=== PATIENT | female | born 1985 | race Asian ===

== ENCOUNTER 2018-06-11 07:15 | Inpatient (IN) | payer BC ==
[~2018-06-11] VITALS: Ht 157.5 cm; Wt 84.8 kg
[2018-06-11] MEDS ORDERED: LR 1,000 ML IV ONE (08:08)
[2018-06-11] MEDS ORDERED: OXYTOCIN/0.9 % SODIUM CHLORIDE 1,000 ML IV SCH (08:08)
[2018-06-11] MEDS ORDERED: LR 1,000 ML IV SCH ×3 (08:08→13:43)
[2018-06-11] MEDS ORDERED: NALBUPHINE HCL 10 MG/ML AMP IVP PRN (08:15)
[2018-06-11] MEDS ORDERED: AMPICILLIN SODIUM 2 GM in NS 100 ML IV ONE (08:15)
[2018-06-11] MEDS ORDERED: TERBUTALINE SULFATE 1 MG/ML VIAL SUBCUT ONE (08:15)
[2018-06-11 09:44] LABS: HEMATOCRIT 32.8 % (36-48); HEMOGLOBIN 11.3 g/dL (12.0-16.0); MEAN CORPUSCULAR VOLUME 89 fL (79.0-98.0); RED BLOOD CELL COUNT(AUTO) 3.69 MIL/uL (4.2-6.2); WHITE BLOOD COUNT (AUTO) 9.4 K/uL (4.8-10.8)
[2018-06-11 09:45] LABS: MEAN CORPUSCULAR HEMOGLOBIN 31 pg (27-31); MEAN CORPUSCULAR HGB CONC 35 % (32-36); PLATELET COUNT (AUTO) 221 K/uL (130-430)
[2018-06-11 10:10] LABS: BAND % (MANUAL) 1 % (0-6); BASOPHILS % (MANUAL) 0 % (0-2); EOSINOPHILS % (MANUAL) 3 % (0-7); LYMPHOCYTES % (MANUAL) 21 % (20-46); MONOCYTES % (MANUAL) 1 % (0-11)
[2018-06-11] MEDS ORDERED: ROPIVACAINE 0.2% 0 ML ONE (10:31)
[2018-06-11] MEDS ORDERED: fentaNYL CITRATE/PF 100 MCG/2 ML AMP ONE (10:31)
[2018-06-11] MEDS ORDERED: LR 500 ML IV ONE (10:40)
[2018-06-11] MEDS ORDERED: FENT2mCg/mL-ROPIVA0.2%/NS EPID 150 ML EP SCH (10:45)
[2018-06-11] MEDS ORDERED: LR 1,000 ML IV.SOLN IV ONE (11:55)
[2018-06-11] MEDS ORDERED: WATER FOR IRRIGATION,STERILE 1,000 ML IRRIG.SOLN IR ONE (11:55)
[2018-06-11] MEDS ORDERED: ePHEDrine sulfate 50 MG/ML VIAL IVP ONE (11:55)
[2018-06-11] MEDS ORDERED: ONDANSETRON HCL 4 MG/2 ML VIAL IVP ONE (11:55)
[2018-06-11] MEDS ORDERED: MORPHINE SULFATE 10MG/10ML PF AMP EP ONE (11:55)
[2018-06-11] MEDS ORDERED: LIDOCAINE 2%, 20 ML MDV INJ ONE (11:55)
[2018-06-11] MEDS ORDERED: CEFAZOLIN 2 GM IVPB PREMIX 50 ML IV ONE ×2 (11:55→12:00)
[2018-06-11] MEDS ORDERED: AMPICILLIN SODIUM 1 GM in NS 50 ML IV SCH (12:15)
[2018-06-11] MEDS ORDERED: KETOROLAC TROMETHAMINE 60 MG/2 ML VIAL IM PRN (13:00)
[2018-06-11] MEDS ORDERED: DIPHENHYDRAMINE INJ 50 MG/ML VIAL IM PRN (13:00)
[2018-06-11] MEDS ORDERED: NALOXONE HCL 0.4 MG/ML AMP (NARCAN) IVP PRN (13:00)
[2018-06-11] MEDS ORDERED: ONDANSETRON HCL 4 MG/2 ML VIAL IVP PRN (13:00)
[2018-06-11] MEDS ORDERED: METOCLOPRAMIDE HCL 10 MG/2 ML VIAL IVP PRN (13:00)
[2018-06-11] MEDS ORDERED: MEPERIDINE HCL/PF 25 MG/ML DISP.SYRIN IVP PRN (13:00)
[2018-06-11] MEDS ORDERED: MORPHINE SULFATE 10MG/10ML PF AMP SP SCH (13:00)
[2018-06-11] MEDS ORDERED: MEPERIDINE HCL/PF 50 MG/ML AMP IVP PRN ×2 (13:00)
[2018-06-11] MEDS ORDERED: OXYTOCIN/0.9 % SODIUM CHLORIDE 1,000 ML IV ONE ×2 (13:41→13:43)
[2018-06-11 13:45] VITALS: BP_SYST 133
[2018-06-11] MEDS ORDERED: SENNOSIDES/DOCUSATE SODIUM 1 TAB TABLET(SENOKOT-S) PO PRN (13:45)
[2018-06-11] MEDS ORDERED: LANOLIN 7 GM OINT. TP PRN (13:45)
[2018-06-11] MEDS ORDERED: BISACODYL 10 MG/SUPPOSITORY RC PRN (13:45)
[2018-06-11] MEDS ORDERED: ANUSOL 1 EA SUPP.RECT (PREPARATION H) RC PRN (13:45)
[2018-06-11] MEDS: CEFAZOLIN 1 GM IVPB PREMIX 50 ML IV SCH (17:56)
[2018-06-12] MEDS: CEFAZOLIN 1 GM IVPB PREMIX 50 ML IV SCH (01:17)
[2018-06-12 07:55] LABS: BASOPHILS % (AUTO) 0.2 % (0.0-2.0); EOSINOPHILS % (AUTO) 0.4 % (0.0-4.0); HEMATOCRIT 28.2 % (36-48); HEMOGLOBIN 9.5 g/dL (12.0-16.0); LYMPHOCYTES # (AUTO) 1.4 K/uL (1.0-5.5); LYMPHOCYTES % (AUTO) 13.6 % (20.5-51.5); MEAN CORPUSCULAR HEMOGLOBIN 30 pg (27-31); MEAN CORPUSCULAR HGB CONC 34 % (32-36); MEAN CORPUSCULAR VOLUME 89 fL (79.0-98.0); MONOCYTES # (AUTO) 0.7 K/uL (0.0-1.0); MONOCYTES % (AUTO) 6.7 % (1.7-9.3); NEUTROPHILS # (AUTO) 8.5 K/uL (1.8-7.7); NEUTROPHILS % (AUTO) 79.1 % (40.0-70.0); PLATELET COUNT (AUTO) 171 K/uL (130-430); RED BLOOD CELL COUNT(AUTO) 3.18 MIL/uL (4.2-6.2); WHITE BLOOD COUNT (AUTO) 10.6 K/uL (4.8-10.8)
[2018-06-12] MEDS: SIMETHICONE 80 MG TAB.CHEW PO PRN ×3 (12:21→22:19)
[2018-06-12] MEDS: IBUPROFEN 600 MG TABLET PO SCH ×3 (12:21→23:50)
[2018-06-12] MEDS: DOCUSATE SODIUM 100 MG CAPSULE PO PRN (22:18)
[2018-06-13] MEDS: IBUPROFEN 600 MG TABLET PO SCH ×3 (05:58→18:39)
[2018-06-13] MEDS: DOCUSATE SODIUM 100 MG CAPSULE PO PRN ×2 (12:03→21:20)
[2018-06-14] MEDS: IBUPROFEN 600 MG TABLET PO SCH (12:36)
== END 2018-06-14 13:15 | disposition home or self-care (01) | DRG 786 ==
LOC: SPU 07:15
PROVIDERS: ADMIT Specialist; ATTEND Specialist
PROC: 10D00Z1 Extraction of Products of Conception, Low, Open Approach (ICD-10-PCS; principal; 2018-06-11 10:30)
DX: O42.90 Premature rupture of membranes, unspecified as to length of time between rupture and onset of labor, unspecified weeks of gestation (principal); O45.93 Premature separation of placenta, unspecified, third trimester; O76 Abnormality in fetal heart rate and rhythm complicating labor and delivery; Z3A.36 36 weeks gestation of pregnancy; Z37.0 Single live birth
CPT/HCPCS: 36415; 81002-TC; 85007; 85025; 85027; 86592; 86886; 86900; 86901; 94760; J0290; J0690; J1200; J2001; J2274; J2405; J2590; J2795; J3010; J7120

== ENCOUNTER 2020-05-18 10:55 | Inpatient (IN) | payer BC, SELFPAY ==
[~2020-05-18] VITALS: Ht 157.5 cm; Wt 90.7 kg
[2020-05-18] MEDS ORDERED: LR 1,000 ML IV ONE (11:20)
[2020-05-18] MEDS ORDERED: CEFAZOLIN 2 GM IVPB PREMIX 50 ML IV ONE (11:30)
[2020-05-18 11:58] LABS: BASOPHILS % (AUTO) 0.4 % (0.0-2.0); EOSINOPHILS % (AUTO) 0.5 % (0.0-4.0); HEMATOCRIT 34.3 % (36-48); HEMOGLOBIN 11.7 g/dL (12.0-16.0); LYMPHOCYTES # (AUTO) 1.7 K/uL (1.0-5.5); LYMPHOCYTES % (AUTO) 17.8 % (20.5-51.5); MEAN CORPUSCULAR HEMOGLOBIN 30 pg (27-31); MEAN CORPUSCULAR HGB CONC 34 % (32-36); MEAN CORPUSCULAR VOLUME 87 fL (79.0-98.0); MONOCYTES # (AUTO) 0.5 K/uL (0.0-1.0); MONOCYTES % (AUTO) 4.8 % (1.7-9.3); NEUTROPHILS # (AUTO) 7.5 K/uL (1.8-7.7); NEUTROPHILS % (AUTO) 76.5 % (40.0-70.0); PLATELET COUNT (AUTO) 214 K/uL (130-430); RED BLOOD CELL COUNT(AUTO) 3.95 MIL/uL (4.2-6.2); RED CELL DISTRIBUTION WIDTH 13.3 % (9.0-15.0); WHITE BLOOD COUNT (AUTO) 9.8 K/uL (4.8-10.8)
[2020-05-18 12:09] LABS: BILIRUBIN,URINE NEGATIVE (NEGATIVE); BLOOD, URINE NEGATIVE (NEGATIVE); COLOR,URINE YELLOW (YELLOW); GLUCOSE,URINE NEGATIVE (NEGATIVE); KETONES,URINE TRACE (NEGATIVE); LEUKOCYTE ESTERASE ,URINE NEGATIVE (NEGATIVE); NITRITE, URINE NEGATIVE (NEGATIVE); PROTEIN URINE NEGATIVE (NEGATIVE); UROBILINOGEN,URINE 0.2 (0.2-1.0)
[2020-05-18 12:18] LABS: CLARITY/URINE SLIGHTLY HAZY (CLEAR)
[2020-05-18] MEDS ORDERED: ONDANSETRON HCL 4 MG/2 ML VIAL IVP ONE (13:00)
[2020-05-18] MEDS ORDERED: NS IRRIG SOLN 1000 ML IR ONE (13:00)
[2020-05-18] MEDS ORDERED: BUPIVACAINE /DEX PF 0.75% SPINAL 2 ML AMP INJ ONE (13:00)
[2020-05-18] MEDS ORDERED: PHENYLEPHRINE HCL 10 MG/ML VIAL (NEOSYNEPHRINE) IV ONE (13:00)
[2020-05-18] MEDS ORDERED: METOCLOPRAMIDE HCL 10 MG/2 ML VIAL IVP ONE (13:00)
[2020-05-18] MEDS ORDERED: LR 1,000 ML IV.SOLN IV ONE (13:00)
[2020-05-18] MEDS ORDERED: MORPHINE SULFATE 10MG/10ML PF AMP EP ONE (13:00)
[2020-05-18] MEDS ORDERED: NALOXONE HCL 0.4 MG/ML AMP (NARCAN) IVP PRN ×2 (13:30→14:15)
[2020-05-18] MEDS ORDERED: KETOROLAC TROMETHAMINE 60 MG/2 ML VIAL IM PRN (13:30)
[2020-05-18] MEDS ORDERED: MORPHINE SULFATE 10MG/10ML PF AMP SP SCH (13:30)
[2020-05-18] MEDS ORDERED: DIPHENHYDRAMINE INJ 50 MG/ML VIAL IM PRN (13:30)
[2020-05-18] MEDS ORDERED: OXYTOCIN/0.9 % SODIUM CHLORIDE 1,000 ML IV SCH (14:02)
[2020-05-18] MEDS ORDERED: LR 1,000 ML IV SCH (14:02)
[2020-05-18] MEDS ORDERED: LANOLIN 7 GM OINT. TP PRN (14:15)
[2020-05-18] MEDS ORDERED: TEMAZEPAM 15 MG CAPSULE PO PRN (14:15)
[2020-05-18] MEDS ORDERED: BISACODYL 10 MG/SUPPOSITORY RC PRN (14:15)
[2020-05-18] MEDS ORDERED: MEASLES,MUMPS&RUBELLA VACC/PF 12500 UNIT/0.5 ML VIAL SUBQ PRN (14:15)
[2020-05-18] MEDS ORDERED: HYDROcodone/ACETAMIN 5-325 MG TAB (NORCO/ VICODIN) PO PRN (14:15)
[2020-05-18] MEDS ORDERED: OXYCODONE/ACETAMINOPHEN 5-325 TABLET PO PRN (14:15)
[2020-05-18] MEDS ORDERED: ANUSOL 1 EA SUPP.RECT (PREPARATION H) RC PRN (14:15)
[2020-05-18] MEDS ORDERED: RHO(D) IMMUNE GLOBULIN/MALTOSE 1500 UNITS/1.3 ML (WINHRO) IM PRN (14:15)
[2020-05-18] MEDS ORDERED: OXYCODONE/ACETAMINOPHEN *10*mg/325 mg TABLET PO PRN (14:15)
[2020-05-18] MEDS ORDERED: SENNOSIDES/DOCUSATE SODIUM 1 TAB TABLET(SENOKOT-S) PO PRN (14:15)
[2020-05-18] MEDS ORDERED: DIPH-TET-PERTUS Vaccine 0.5 ML VIAL (ADACEL) I.M. PRN (14:15)
[2020-05-18] MEDS: ONDANSETRON HCL 4 MG/2 ML VIAL IVP PRN ×2 (15:19→21:46)
[2020-05-18] MEDS ORDERED: OXYTOCIN/0.9 % SODIUM CHLORIDE 1,000 ML IV ONE (15:19)
[2020-05-18 16:07] VITALS: BP_SYST 119
[2020-05-18] MEDS ORDERED: METOCLOPRAMIDE HCL 10 MG/2 ML VIAL IVP PRN (16:45)
[2020-05-18] MEDS: CEFAZOLIN 1 GM IVPB PREMIX 50 ML IV SCH (17:33)
[2020-05-19] MEDS: KETOROLAC TROMETHAMINE 30 MG VIAL IVP SCH ×2 (00:02→06:00)
[2020-05-19] MEDS: CEFAZOLIN 1 GM IVPB PREMIX 50 ML IV SCH ×2 (00:04→05:59)
[2020-05-19 07:22] LABS: BASOPHILS % (AUTO) 0.2 % (0.0-2.0); EOSINOPHILS % (AUTO) 0.2 % (0.0-4.0); HEMATOCRIT 30.1 % (36-48); HEMOGLOBIN 10.1 g/dL (12.0-16.0); LYMPHOCYTES # (AUTO) 1.5 K/uL (1.0-5.5); MEAN CORPUSCULAR HEMOGLOBIN 30 pg (27-31); MEAN CORPUSCULAR HGB CONC 34 % (32-36); MEAN CORPUSCULAR VOLUME 88 fL (79.0-98.0); MONOCYTES # (AUTO) 0.7 K/uL (0.0-1.0); MONOCYTES % (AUTO) 6.4 % (1.7-9.3); NEUTROPHILS # (AUTO) 8.6 K/uL (1.8-7.7); NEUTROPHILS % (AUTO) 79.2 % (40.0-70.0); PLATELET COUNT (AUTO) 175 K/uL (130-430); RED BLOOD CELL COUNT(AUTO) 3.42 MIL/uL (4.2-6.2); RED CELL DISTRIBUTION WIDTH 13.6 % (9.0-15.0); WHITE BLOOD COUNT (AUTO) 10.9 K/uL (4.8-10.8)
[2020-05-19] MEDS: DOCUSATE SODIUM 100 MG CAPSULE PO PRN (18:04)
[2020-05-19] MEDS: SIMETHICONE 80 MG TAB.CHEW PO PRN ×2 (18:04→23:59)
[2020-05-19] MEDS: IBUPROFEN 600 MG TABLET PO SCH ×2 (18:05→23:58)
[2020-05-20] MEDS: IBUPROFEN 600 MG TABLET PO SCH ×3 (06:16→17:42)
[2020-05-20] MEDS: SIMETHICONE 80 MG TAB.CHEW PO PRN (06:17)
[2020-05-20] MEDS: DOCUSATE SODIUM 100 MG CAPSULE PO PRN (06:17)
[2020-05-21] MEDS: IBUPROFEN 600 MG TABLET PO SCH ×2 (00:13→05:22)
[2020-05-21] MEDS: DOCUSATE SODIUM 100 MG CAPSULE PO PRN (05:22)
== END 2020-05-21 12:39 | disposition home or self-care (01) | DRG 785 ==
LOC: SPU 10:55
PROVIDERS: ADMIT Specialist; ATTEND Specialist
PROC: 0UL70CZ Occlusion of Bilateral Fallopian Tubes with Extraluminal Device, Open Approach (ICD-10-PCS; 2020-05-18)
PROC: 10D00Z1 Extraction of Products of Conception, Low, Open Approach (ICD-10-PCS; principal; 2020-05-18 13:00)
DX: O34.211 Maternal care for low transverse scar from previous cesarean delivery (principal); Z20.828 Contact with and (suspected) exposure to other viral communicable diseases; Z30.2 Encounter for sterilization; Z3A.39 39 weeks gestation of pregnancy; Z37.0 Single live birth
CPT/HCPCS: 36415; 81003; 85025; 86592; 86886; 86900; 86901; J0690; J1885; J2274; J2370; J2405; J2590; J2765; J3490; J7120; U0003-CS